=== PATIENT | male | born 1970 | race African-American/Black ===

== ENCOUNTER 2019-08-22 08:34 | Emergency (ER) | payer MEDICARE ==
[~2019-08-22] VITALS: Ht 188 cm; Wt 110.0 kg
[2019-08-22 10:46] LABS: URINE AMPHETAMINE SCREEN NEGATIVE (Neg); URINE BARBITUATE SCREEN NEGATIVE (Neg); URINE BENZODIAZEPINES SCREEN NEGATIVE (Neg); URINE CANNABINOID SCREEN NEGATIVE (Neg); URINE COCAINE SCREEN NEGATIVE (Neg); URINE METHADONE SCREEN NEGATIVE (Neg); URINE OPIATE SCREEN NEGATIVE (Neg); URINE PHENCYCLIDINE SCREEN NEGATIVE (Neg)
[2019-08-22 10:46] LABS: BASOPHILS % (AUTO) 0.3 % (0-1); EOSINOPHILS % (AUTO) 0.5 % (0-6); HEMATOCRIT 37.7 % (42.0-52.0); HEMOGLOBIN 12.7 g/dl (14.0-17.9); LYMPHOCYTES # (AUTO) 0.5 X10'3 (1.1-4.8); LYMPHOCYTES % (AUTO) 17.6 % (21-51); MEAN CORPUSCULAR HEMOGLOBIN 29.8 PG (27.0-31.0); MEAN CORPUSCULAR HGB CONC 33.7 g/dL (33.0-36.5); MEAN CORPUSCULAR VOLUME 88.6 FL (78-98); MEAN PLATELET VOLUME 7.7 FL (7.4-10.4); MONOCYTES # (AUTO) 0.2 X10'3 (0-0.9); MONOCYTES % (AUTO) 6.9 % (2-12); NEUTROPHILS # (AUTO) 2.2 X10'3 (1.8-7.7); NEUTROPHILS % (AUTO) 74.7 % (42-75); PLATELET COUNT 241 X10'3 (140-440); RED BLOOD COUNT 4.25 X10'6 (4.70-6.10); RED CELL DISTRIBUTION WIDTH 14.6 % (11.5-14.5)
[2019-08-22 10:59] LABS: ALANINE AMINOTRANSFERASE 145 U/L (12-78); ALBUMIN 3.9 G/DL (3.4-5.0); ALBUMIN/GLOBULIN RATIO 1.1 (1.1-1.5); ALKALINE PHOSPHATASE 63 IU/L (46-116); ANION GAP 7 (8-16); ASPARTATE AMINO TRANSFERASE 419 U/L (10-37); BILIRUBIN,TOTAL 0.3 MG/DL (0.1-1.0); BLOOD UREA NITROGEN 14 MG/DL (7-18); BUN/CREATININE RATIO 17.7 (5.4-32.0); CALCIUM 8.4 MG/DL (8.5-10.1); CHLORIDE 93 MMOL/L (99-107); CREATININE 0.79 MG/DL (0.60-1.10); GLUCOSE 83 MG/DL (70-104); POTASSIUM 3.8 MMOL/L (3.5-5.1); SODIUM 128 MMOL/L (135-145); TOTAL CARBON DIOXIDE 27.6 MMOL/L (24-32); TOTAL PROTEIN 7.4 G/DL (6.4-8.2); eGFR > 90 ML/MIN
[2019-08-22 11:09] LABS: ETHANOL < 0.010 GM/DL (0.0-0.010)
[2019-08-22] MEDS ORDERED: levoTHYROXINE 25mcg tablet PO SCH (15:41)
[2019-08-22] MEDS ORDERED: LEVO175T2 PO (15:41)
--- NOTE | 2019-08-22 17:48 | NUR ---
[facility] CALLED TO [facility]. [employer] HAS AUTHORIZED TRANSPORT
[2019-08-22 18:00] VITALS: BP 193/98
[2019-08-22] MEDS ORDERED: LEVO100T PO (18:15)
== END 2019-08-22 18:28 | disposition home or self-care (01) ==
LOC: ER 08:35
DX: R41.0 Disorientation, unspecified (principal); R74.0 Nonspecific elevation of levels of transaminase and lactic acid dehydrogenase [LDH]; E03.9 Hypothyroidism, unspecified; M62.81 Muscle weakness (generalized); Z90.89 Acquired absence of other organs; Z59.0 Homelessness; Z79.899 Other long term (current) drug therapy
CPT/HCPCS: 36415; 70450; 71045; 80053; 80305; 80320; 82948; 83880; 84443; 85025; 85610; 93005; 93971; 99285

== ENCOUNTER 2019-09-26 20:07 | Emergency (ER) | payer MEDICARE ==
[~2019-09-26] VITALS: Ht 188 cm; Wt 98.8 kg
[~2019-09-26 20:07] MED LIST: AMLO2.5T2 PO; BACI28.42 TP; CARV12.5 PO; CEFD300C3 PO; DOCU100C41 PO; ERGO500041 PO; FURO-150 PO; HALO5TAB PO; LEVO200T PO; LISI-600 PO; METH4TAB81 PO; TRAZ-251 PO
[2019-09-26 20:12] VITALS: BP 170/94
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
--- NOTE | 2019-09-26 22:27 | NUR ---
Pt escorted out of the department by security and [employer] officer came to the ED to take the patient into custody. Pt's belongings given to security and were with the patient upon leaving the ED.
== END 2019-09-26 22:27 | disposition left against medical advice (07) ==
LOC: ER 20:08
DX: R59.9 Enlarged lymph nodes, unspecified (principal); Z53.21 Procedure and treatment not carried out due to patient leaving prior to being seen by health care provider

== ENCOUNTER 2019-09-30 17:02 | Emergency (ER) | payer MEDICARE ==
[~2019-09-30] VITALS: Ht 188 cm; Wt 103.2 kg
[~2019-09-30 17:02] MED LIST changes: -CEFD300C3 PO; -METH4TAB81 PO
[2019-09-30 17:33] VITALS: BP 143/99
--- NOTE | 2019-09-30 18:30 | NUR ---
Patient seen and assessed by provider.
== END 2019-09-30 18:30 | disposition home or self-care (01) ==
LOC: ER 17:03
DX: T69.9XXA Effect of reduced temperature, unspecified, initial encounter (principal); Z59.0 Homelessness; Z90.89 Acquired absence of other organs; Z79.899 Other long term (current) drug therapy; Y92.89 Other specified places as the place of occurrence of the external cause
CPT/HCPCS: 99283